=== PATIENT | male | born 1950 | race Caucasian/White ===

== ENCOUNTER → 2024-09-04 12:10 | Outpatient (REF) | payer MEDICARE, SELFPAY | LOC: DHSLP 12:10 | PROVIDERS: ATTENDING PHYSICIAN Internal Medicine Critical Care Medicine; FAMILY PHYSICIAN Family Medicine | DX: G47.33 Obstructive sleep apnea (adult) (pediatric) (principal); R06.83 Snoring | CPT/HCPCS: 95800 ==

== ENCOUNTER → 2024-09-14 13:22 | Outpatient (REF) | payer MEDICARE, SELFPAY | LOC: DHSLP 13:22 | PROVIDERS: ATTENDING PHYSICIAN Internal Medicine Critical Care Medicine; FAMILY PHYSICIAN Family Medicine | DX: G47.33 Obstructive sleep apnea (adult) (pediatric) (principal) | CPT/HCPCS: 95800 ==

== ENCOUNTER → 2025-02-26 09:22 | Outpatient (REF) | payer MEDICARE, SELFPAY | LOC: HWRCS 09:22 | PROVIDERS: ATTENDING PHYSICIAN Internal Medicine Cardiovascular Disease; FAMILY PHYSICIAN Family Medicine | DX: R01.1 Cardiac murmur, unspecified (principal); Z76.89 Persons encountering health services in other specified circumstances | CPT/HCPCS: 93306 ==